=== PATIENT | female | born 1980 | race Caucasian/White ===

== ENCOUNTER 2019-04-30 02:07 | Emergency (ER) | payer OTHER ==
[~2019-04-30] VITALS: Ht 167.6 cm; Wt 62.6 kg
[2019-04-30 03:13] LABS: HEMATOCRIT 37.9 % (37.0-47.0); HEMOGLOBIN 12.4 g/dl (12.0-16.0); MEAN CELL VOLUME 95.5 fl (81.0-99.0); MEAN CORPUSCULAR HGB 31.2 pg (27.0-31.0); MEAN CORPUSCULAR HGB CONC 32.7 g/dl (33.0-37.0); MEAN PLATELET VOLUME 10.7 fl (9.6-12.3); PLATELET COUNT AUTOMATED 142 10*3/uL (130-400); RED BLOOD COUNT 3.97 10*6/uL (4.10-5.10); RED CELL DISTRI WIDTH 12.5 % (0-14.5); WHITE BLOOD COUNT 6.4 10*3/uL (4.8-10.8)
[2019-04-30 03:29] LABS: ALBUMIN 3.8 gm/dl (3.1-4.5); ALKALINE PHOSPHATASE 68 U/L (45-117); BUN 12 mg/dl (7-24); CHLORIDE 108 mmol/L (98-107); CREATININE 0.91 mg/dL (0.55-1.02); POTASSIUM 3.4 mmol/L (3.5-5.1); SGOT/AST 30 IU/L (3-35); SGPT/ALT 41 U/L (12-78); SODIUM 143 mmol/L (136-145); TOTAL PROTEIN 7.5 gm/dL (6.4-8.2)
[2019-04-30 03:32] LABS: PLATELET SUFFICIENCY LOW (NORMAL); TOTAL CELLS COUNTED 100 #CELLS
[2019-04-30] MEDS ORDERED: PROVENTIL HFA6.7 GM INH (05:44)
[2019-04-30] MEDS ORDERED: TESSALON PERLE100 MG PO (05:44)
== END 2019-04-30 06:17 | disposition home or self-care (01) ==
LOC: ED 02:07
PROVIDERS: Emergency Medicine
DX: J20.5 Acute bronchitis due to respiratory syncytial virus (principal)

== ENCOUNTER 2019-10-27 17:03 | Emergency (ER) | payer OTHER ==
[~2019-10-27] VITALS: Ht 167.6 cm; Wt 81.6 kg
[~2019-10-27 17:03] MED LIST: PROVENTIL HFA6.7 GM INH; TESSALON PERLE100 MG PO
[2019-10-27] MEDS ORDERED: METHOCARBAMOL500 M1 PO (18:51)
[2019-10-27] MEDS ORDERED: ANAPROX DS550 MG PO (18:51)
[2019-10-27] MEDS ORDERED: MEDROL DOSEPAK4 MG PO (18:52)
[2019-10-27] MEDS ORDERED: ZANAFLEX4 M1 PO (18:57)
== END 2019-10-27 18:56 | disposition home or self-care (01) ==
LOC: ED 17:03
DX: M51.36 Other intervertebral disc degeneration, lumbar region (principal); F17.200 Nicotine dependence, unspecified, uncomplicated; Z88.2 Allergy status to sulfonamides; Z79.899 Other long term (current) drug therapy